=== PATIENT | female | born 1930 | race Caucasian/White ===

== ENCOUNTER → 2017-01-12 | Outpatient (CLI) | payer OTHER ==
[~2017-01-12] MED LIST: ACET-1311 PO; AMLO-110 PO; AMLO5TAB2 PO; ASPCH81X PO; CHOL1000 PO; CYAN10005 PO; FOLI1TAB7 PO; LEVO25TA PO; LORA-741 PO; MECL-91 PO; METO1TAB31 PO; MULT-188 PO; OMEP20CA9 PO; ROSU5TAB PO
[2017-01-12 11:50] LABS: HEMATOCRIT 40.5 % (37-47); MEAN CELL VOLUME 93.3 fL (80-100); MEAN CORPUSCULAR HEMOGLOBIN 30.9 pg (25-34); MEAN CORPUSCULAR HGB CONC 33.1 g/dl (32-36); MEAN PLATELET VOLUME 9.3 fL (7.4-10.4); PLATELET COUNT 179 K/uL (130-400); RED BLOOD COUNT 4.34 M/uL (4.2-5.4)
[2017-01-12 12:00] LABS: ALT/SGPT 23 U/L (12-78); AST/SGOT 25 U/L (15-37); BLOOD UREA NITROGEN 15 mg/dl (7-18); BUN/CREATININE RATIO 13.3 (10-20); CALCIUM 9.1 mg/dl (8.5-10.1); CARBON DIOXIDE 28 mmol/L (21-32); CHLORIDE 107 mmol/L (98-107); CHOLESTEROL 201 mg/dl (0-200); GLUCOSE 96 mg/dl (70-99); MAGNESIUM 2.1 mg/dl (1.8-2.4); POTASSIUM 4.2 mmol/L (3.5-5.1); SODIUM 142 mmol/L (136-145); TRIGLYCERIDES 120 mg/dl (0-150); VERY LOW DENSITY LIPOPROT CALC 24 mg/dl
[2017-01-12 12:06] LABS: ALB/GLOB RATIO 1.1 (0.9-2); ALKALINE PHOSPHATASE 71 U/L (45-117); CHOLESTEROL/HDL RATIO 3.7; HDL CHOLESTEROL 55 mg/dl; LDL CHOLESTEROL CALCULATED 122 mg/dl
[2017-01-12 12:38] LABS: ESTIMATED AVERAGE GLUCOSE 134 mg/dl; HA1C FLAG Normal (Normal)
[2017-01-12 13:26] LABS: BASO ABS # 0.05 K/uL (0-0.2); BASOPHIL % 0.9 %; COMPLETE YES; EOSINOPHIL % 1.7 %; LARGE GRANULAR LYMPHOCYTE % 30.4 %; LYMPHOCYTE % 35.7 %; NEUTROPHILS % 23.5 %
--- NOTE | 2017-01-23 08:31 | CODING QUERY MEDICAL NECESSITY ---
CQSUPPORTING DIAGNOSIS NEEDED A supporting diagnosis is required for the test/procedure performed on this patient in order for us to be reimbursed by the patient's insurance. Please provide a supporting diagnosis for the following test/procedure listed below next to the test name along with your signature. *If there is no additional diagnosis for this patient that would support the following test/procedure please document that below next to the test/procedure. Test(s)/Procedure(s) that require a supporting diagnosis: DOS 01/12/17 GLYCATED HEMOGLOBIN TEST Provider Signature: Date: Thank you [facility] Once completed, please kindly fax back to [phone] For questions please call [phone]
== END | disposition home or self-care (01) ==
LOC: C.LABPBG 08:57
PROVIDERS: ATTEND Family Medicine
DX: I12.9 Hypertensive chronic kidney disease with stage 1 through stage 4 chronic kidney disease, or unspecified chronic kidney disease (principal); N18.3 Chronic kidney disease, stage 3 (moderate); E78.5 Hyperlipidemia, unspecified; R53.83 Other fatigue; R73.01 Impaired fasting glucose

== ENCOUNTER 2017-02-28 22:25 | Observation (INO) | payer OTHER ==
[~2017-02-28] VITALS: Ht 152.4 cm; Wt 57.4 kg
[~2017-02-28 22:25] MED LIST changes: -ACET-1311 PO; -CHOL1000 PO; -MECL-91 PO
[2017-02-28 23:30] LABS: HEMATOCRIT 37.8 % (37-47); MEAN CELL VOLUME 91.5 fL (80-100); MEAN CORPUSCULAR HGB CONC 34.9 g/dl (32-36); MEAN PLATELET VOLUME 9.4 fL (7.4-10.4); PLATELET COUNT 164 K/uL (130-400); RED BLOOD COUNT 4.13 M/uL (4.2-5.4); WHITE BLOOD COUNT 5.12 K/uL (4.8-10.8)
[2017-02-28 23:45] LABS: BUN/CREATININE RATIO 12.2 (10-20); CALCIUM 9.2 mg/dl (8.5-10.1); CREATININE 1.3 mg/dl (0.60-1.20); POTASSIUM 3.7 mmol/L (3.5-5.1)
--- NOTE | 2017-02-28 23:45 | EMERGENCY ROOM VISIT NOTE ---
History Report prepared by Himanshu: Evan Chisholm Under the Supervision of: Dr. Nisa Everett D.O. First contact with patient: 22:49 Chief Complaint: DIZZY Stated Complaint: DIZZY/NAUSEA Nursing Triage Summary: pt arrives via ALS from home per ALS pt has been dizzy, lightheaded and felt like she was going to pass out off and on today she reports no factors have made it worse or better, it's intermittent History of Present Illness The patient is an 87 year old female who presents to the Emergency Room with complaints of worsening intermittent dizziness for the past couple of days. The patient's family states that the patient is intermittently dizzy more frequently , and they occur when she is lying in bed, sitting, and while walking. The patient states that during dinner she had an episode of dizziness, and she passed out and put her head down. The patient additionally is complaining of nausea. The patient denies any room spinning or ringing in her ears, and she denies any abdominal pain. The patient states that she has leg swelling and weakness throughout the day, and she has been having balance problems. She additionally has been having trouble remembering things. The patient states that she has not recent medication changes, and she states that nothing makes that dizziness better or worse. She states that she has not been eating as well for the past month, though she has not lost any weight. The patient has a history of a pituitary tumor, stroke, and a blood clot in her lung 3-4 years ago during which she had a syncopal episode. She is not currently on blood thinner. The patient additionally states that she only has one kidney and is stage 3 kidney disease. Source of History: patient Onset: past couple of days Position: other (global) Quality: other (dizziness) Timing: intermittent, worsening Associated Symptoms: + nausea, No abdominal pain Note: Associated symptoms: leg swelling Review of Systems See HPI for pertinent positives & negatives. A total of 10 systems reviewed and were otherwise negative. 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 (5) Diverticular disease of colon (6) Dyslipidemia (7) GERD (gastroesophageal reflux disease) (8) History abnormal MRI brain (9) History of DVT (deep vein thrombosis) (10) History of peptic ulcer disease (11) History of pulmonary embolism (12) Hypertension (13) LBBB (left bundle branch block) (14) Migraine headache (15) Myalgia (16) Osteoporosis Surgical Problems: (1) Status post cataract extraction (2) Status post nephrectomy Family History Coronary artery disease FATHER Crohn's disease MOTHER Diabetes mellitus BROTHER Social History Smoking Status: Never Smoker Marital Status: Housing Status: lives with family Occupation Status: retired Current/Historical Medications Scheduled Amlodipine (Norvasc), 5 MG PO QAM Amlodipine Besylate (Norvasc), 2.5 MG PO HS Aspirin (Aspirin Chewable), 81 MG PO QAM Cholecalciferol (Vitamin D3), 1 TAB PO DAILY Cyanocobalamin (Vitamin B-12), 1,000 MCG PO QAM Folic Acid (Folvite), 1 MG PO AFTERNOON Metoprolol Succinate (Toprol Xl), 1 TAB PO BID Multiple Vitamins W/ Minerals (Ocuvite), 1 TAB PO QAM Omeprazole (Prilosec), 20 MG PO QAM Rosuvastatin Calcium (Crestor), 5 MG PO QPM Scheduled PRN Acetaminophen (Tylenol), 650 MG PO Q4H PRN for Pain Lorazepam (Ativan), 0.5 MG PO DAILY PRN for Anxiety Allergies Coded Allergies: Alendronate (Verified Allergy, Unknown, Nausea/Heart Burn, 03/01/17) [facility] record. Risedronate (Verified Allergy, Unknown, Nausea/Vomiting, 03/01/17) [facility] record. Simvastatin (Verified Allergy, Unknown, Muscle Pain, 03/01/17) [facility] record. Physical Exam Vital Signs Date Time Temp Pulse Resp B/P (MAP) Pulse Ox O2 Delivery O2 Flow Rate FiO2 03/01/17 00:51 72 16 143/67 94 Room Air 03/01/17 00:20 76 20 154/73 96 Room Air 02/28/17 22:38 82 16 146/72 98 Room Air 84 161/72 91 159/80 02/28/17 22:34 82 02/28/17 22:29 36.4 81 16 175/86 94 Room Air Physical Exam HEENT: Head - normocephalic and atraumatic Pupils are equal, round, and reactive to light. Extraocular eye muscles are intact, and sclera are anicteric. Nose - moist nasal mucosa without discharge. Mouth - moist buccal mucosa. Oropharynx is nonerythematous and there is no tonsillar exudate or edema noted. Neck: Supple; no JVD, nuchal rigidity, cervical lymphadenopathy, or auscultated bruits. Heart: Regular rate and rhythm. There is a normal S1 and S2 with no murmurs, clicks, or gallops appreciated. Lungs: Clear to auscultation bilaterally with no wheezes, rales, or rhonchi. Abdomen: Slight tenderness in the left lower quadrant. Soft, nondistended, with good bowel sounds. There are no palpable pulsatile masses or hepatosplenomegaly. There is no guarding, rigidity, or rebound noted. Extremities: No evidence of cyanosis, clubbing, or edema. There are easily palpable peripheral pulses. Skin: warm and dry with good turgor and no rashes. Neuro: nonfocal Medical Decision & Procedures ER Provider Diagnostic Interpretation: Radiology results as stated below per my review and the radiologist's interpretation: CT HEAD: Comparison 03/26/2014 No evidence of acute infarct, hemorrhage, mass or edema. Chronic small vessel ischemic diseases and senescent changes. Remote lacunar infarcts within the right basal ganaglia. Minimal mucosal thickening in the paranasal sinuses. No acute osseous abnormality. Radiologist: Tommie Fay MD US VENOUS BILATERAL LOWER EXTREMITIES: No evidence of deep vein thrombosis. 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 Radiologist: Tommie Fay MD Laboratory Results Test 02/28/17 22:35 03/01/17 00:15 RDW Standard Deviation 44.2 fL (36.4-46.3) RDW Coefficient of Variation 13.2 % (11.5-14.5) White Blood Count 5.12 K/uL (4.8-10.8) Red Blood Count 4.13 M/uL (4.2-5.4) Hemoglobin 13.2 g/dL (12.0-16.0) Hematocrit 37.8 % (37-47) Mean Corpuscular Volume 91.5 fL (80-100) Mean Corpuscular Hemoglobin 32.0 pg (25-34) Mean Corpuscular Hemoglobin Concent 34.9 g/dl (32-36) Platelet Count 164 K/uL (130-400) Mean Platelet Volume 9.4 fL (7.4-10.4) Neutrophils % (Manual) 32.7 % Lymphocytes % (Manual) 39.8 % Variant Lymphocytes % (manual) 23.0 % Monocytes % (Manual) 2.7 % Eosinophils % (Manual) 0.9 % Basophils % (Manual) 0.9 % Neutrophils # (Manual) 1.67 K/uL (1.4-6.5) Total Absolute Neutrophils 1.67 K/uL (1.4-6.5) Lymphocytes # (Manual) 2.04 K/uL (1.2-3.4) Absolute Variant Lymphocytes 1.18 K/uL Total Absolute Lymphocytes 3.22 K/uL (1.2-3.4) Monocytes # (Manual) 0.14 K/uL (0.11-0.59) Eosinophils # (Manual) 0.05 K/uL (0-0.5) Basophils # (Manual) 0.05 K/uL (0-0.2) Toxic Vacuolation 1+ Est Creatinine Clear Calc Drug Dose 25.6 ml/min Total Bilirubin 0.4 mg/dl (0.2-1) Aspartate Amino Transf (AST/SGOT) 27 U/L (15-37) Alanine Aminotransferase (ALT/SGPT) 21 U/L (12-78) Alkaline Phosphatase 75 U/L (45-117) Troponin I 0.034 ng/ml (0-0.045) Total Protein 7.6 gm/dl (6.4-8.2) Albumin 3.9 gm/dl (3.4-5.0) Globulin 3.7 gm/dl (2.5-4.0) Albumin/Globulin Ratio 1.1 (0.9-2) Thyroid Stimulating Hormone (TSH) 4.380 uIu/ml (0.300-4.500) Lyme Disease IgG Antibody NEG (NEG) Lyme Disease IgM Antibody NEG (NEG) Urine Color YELLOW Urine Appearance CLEAR (CLEAR) Urine pH 6.5 (4.5-7.5) Urine Specific [place] 1.010 (1.000-1.030) Urine Protein NEG (NEG) Urine Glucose (UA) NEG (NEG) Urine Ketones NEG (NEG) Urine Occult Blood NEG (NEG) Urine Nitrite NEG (NEG) Urine Bilirubin NEG (NEG) Urine Urobilinogen NEG (NEG) Urine Leukocyte Esterase NEG (NEG) Laboratory results per my review. Medications Administered Medications (Trade) Dose Ordered Sig/Ariane Route Start Time Stop Time Status Last Admin Dose Admin Sodium Chloride 500 ml @ 999 mls/hr Q31M STAT IV 03/01/17 00:24 03/01/17 00:54 DC 03/01/17 00:51 999 MLS/HR Procedure Sodium Chloride IV ECG Indication: other (dizziness) Rate (beats per minute): 82 Rhythm: normal sinus Findings: LBBB, no acute ischemic change, no ectopy Comparison ECG Date: 03/17/15 Change: LBBB is new ED Course 2251: The patient was evaluated by the medical student. 2310: Past medical records reviewed. The patient was evaluated in room B9. A complete history and physical exam was performed. Laboratory studies were drawn as above. A twelve-lead EKG was obtained as described above 2338: Orthostatic vitals were done, and her blood pressure remained elevated, and her heart rate raised by ten points. The patient went for CT scan of the brain as described above. 0024: Sodium Chloride 500 ml @ 999 mls/hr IV. 0059: I reevaluated the patient, and she states that she had an echo done three weeks ago, and it was normal. She additionally states that when in CT she could not lie flat, and she couldn't put her head back because she was dizzy. 0131: Discussed the patient's case with Dr. Sandoval [facility]. The patient will be evaluated for further management. Medical Decision The patient is a 87 year old female who presents to the ED with dizziness. Differential diagnosis includes vertigo, labyrinthitis, a-fib, arrhythmia, stroke, PE Lab results show: UA is negative, no leukocytosis, stable H&H, BUN of 16, creatinine of 1.3, glucose of 151, normal TSH and LFTs, and troponin of 0.034 This is an 87 showed atrial patient with increasing symptoms of dizziness. The patient seems to have had a syncopal event without any warning signs well at home tonight. She describes recently undergoing echocardiogram which was described as normal. The patient has a new left bundle-branch block noted on EKG. She denies any chest pain or shortness of breath at this time. I am concerned about this patient's episode of syncope at the dinner table tonight. This seems consistent with a drop attack. I felt the patient would require cardiac monitoring and further evaluation of syncope/dizziness. Medication Reconcilliation Current Medication List: was personally reviewed by me Blood Pressure Screening Patient's blood pressure: Elevated blood pressure Monitored by the hospitalist Consults Time Called: 58 Consulting Physician: JOHNY Xiong Returned Call: [phone] Discussed the patient's case with JOHNY Xiong. The patient will be evaluated for further management. Impression Primary Impression: Syncope Additional Impression: Dizziness Scribe Attestation The scribe's documentation has been prepared under my direction and personally reviewed by me in its entirety. I confirm that the note above accurately reflects all work, treatment, procedures, and medical decision making performed by me. Departure Information Dispostion Being Evaluated By Hospitalist Referrals Karyn Puente DO (PCP) Patient Instructions My [facility] Problem Qualifiers Primary Impression: Syncope Syncope type: unspecified Qualified Codes: R55 - Syncope and collapse
[2017-02-28 23:56] LABS: ALB/GLOB RATIO 1.1 (0.9-2); THYROID STIMULATING HORMONE 4.38 uIu/ml (0.300-4.500)
[2017-03-01] VITALS (7 sets, daily range): BP systolic 145–182; BP diastolic 73–92; PULSE 63–85; TEMP 36.6–36.9; O2SAT 94–98; Ht 152.4 cm; Wt 57.4 kg
[2017-03-01] MEDS ORDERED: CHOL1000 PO (00:15)
[2017-03-01] MEDS ORDERED: ACET-1311 PO (00:15)
[2017-03-01] MEDS ORDERED: SODIUM CHLORIDE 0.9% 500ML 500 ML IV STA (00:24)
[2017-03-01 00:30] LABS: URINE APPEARANCE CLEAR (CLEAR); URINE BILIRUBIN NEG (NEG); URINE COLOR YELLOW; URINE NITRITE NEG (NEG); URINE PH 6.5 (4.5-7.5); UROBILINOGEN NEG (NEG)
[2017-03-01 00:37] LABS: MANUAL MICROSCOPIC REQUIRED? NO; REVIEW REQ? NO
[2017-03-01 01:05] LABS: BASO ABS # 0.05 K/uL (0-0.2); BASOPHIL % 0.9 %; COMPLETE YES; EOSINOPHIL % 0.9 %; LYMPH ABS # 2.04 K/uL (1.2-3.4); LYMPHOCYTE % 39.8 %; NEUTROPHILS % 32.7 %; VACUOLIZATION 1+; VARIANT LYM ABS # 1.18 K/uL
[2017-03-01] MEDS ORDERED: ACETAMINOPHEN 325 MG TAB PO PRN ×2 (02:15)
[2017-03-01] MEDS ORDERED: LORAZEPAM 0.5 MG TAB PO PRN (02:15)
[2017-03-01] MEDS ORDERED: MAGNESIUM HYDROXIDE SUSP 30 ML UDC PO PRN (02:15)
[2017-03-01] MEDS ORDERED: ALUMINUM/MAGNESIUM/SIMETH (MAALOX MAX) 30 ML UDC PO PRN (02:15)
[2017-03-01] MEDS ORDERED: POLYETHYLENE (MIRALAX) 17 GM PACK PO PRN (02:15)
[2017-03-01] MEDS ORDERED: ONDANSETRON INJ 2 MG/ML 2 ML VIAL IV PRN (02:15)
--- NOTE | 2017-03-01 02:27 | History and Physical ---
History & Physical Date & Time of Service: Mar 01, 2017 at 02:17 Chief Complaint: Dizzy/Nausea Primary Care Physician: Karyn Puente, History of Present Illness Source: patient Is a pleasant 87 year old female with past medical history of hypertension, hyperlipidemia, hypothyroidism, benign pituitary tumor, CKD stage III, osteoporosis, GERD, prior history of heterozygous MTHFHR mutation suspect PE, who presents with intermittent dizziness. Patient states that this is going on for the past 4 days, she feels like today the worst ever been which made her decide to come to the emergency department. The patient says that for the past 4 days she's had up to 10 episodes of short- lived dizziness. The episodes occur intermittently and last about 5-6 seconds. They're not associated with any specific movements of the head. They can occur either at rest or with exertion. She does not especially describe the dizziness as "spinning around the room", more that she feels a sense of weakness and lightheadedness. She denies any associated symptoms with this dizziness including chest and palpitations, shortness of breath, flashes floaters light. Today was the worst it's been, she states she had more than 10 episodes of this. In addition to this at dinnertime her son noted that she had a syncopal event in which she lost consciousness. This only lasted for a few moments. She was not disoriented when she regained consciousness. She said overall her appetite is slightly reduced and she had a little bit of nausea. But otherwise she is not had any diarrhea, or urinary symptoms. She denies fevers, chills, or sweats. She really states that she's had a few weeks of intermittent palpitations. Her PCP had recently ordered an echocardiogram which was overall unremarkable. In addition she also ordered a Holter monitor, but the patient never had that done. In the ED CT of her brain was grossly unremarkable. On EKG there is noted to be a new left bundle branch block, though the patient never had any chest pain. In addition she had a slightly elevated creatinine 1.3 in comparison to her baseline 1.1. The decision was made to admit the patient for evaluation of presyncope. Past Medical/Surgical History Medical Problems: (1) Carotid artery disease Status: Chronic (2) Cerebrovascular disease Permanent Comment: s/p stroke Status: Chronic (3) CKD (chronic kidney disease) stage 3, GFR 30-59 ml/min Status: Chronic (4) Compound heterozygous MTHFR mutation [id number] Status: Chronic (5) Diverticular disease of colon Status: Chronic (6) Dyslipidemia Status: Chronic (7) GERD (gastroesophageal reflux disease) Status: Chronic (8) History abnormal MRI brain Permanent Comment: 6 mm lesion pituitary fossa MRI 03/23/14 [facility] Status: Chronic (9) History of DVT (deep vein thrombosis) Permanent Comment: many yrs ago, associated with leg injury Status: Chronic (10) History of peptic ulcer disease Status: Chronic (11) History of pulmonary embolism Permanent Comment: 2013 Status: Chronic (12) Hypertension Status: Chronic (13) Migraine headache Status: Chronic (14) Myalgia Status: Chronic (15) Osteoporosis Status: Chronic Surgical Problems: (1) Status post cataract extraction Status: Chronic (2) Status post nephrectomy Permanent Comment: for chronic pyelonephritis Status: Chronic Family History Coronary artery disease FATHER Crohn's disease MOTHER Diabetes mellitus BROTHER Social History Smoking Status: Never Smoker Smokeless Tobacco Use: No Alcohol Use: none Drug Use: none Marital Status: Housing status: lives with family Occupational Status: retired Immunizations History of Influenza Vaccine: Unknown History of Tetanus Vaccine?: Unknown History of Pneumococcal: Unknown History of Hepatitis B Vaccine: Unknown Multi-Drug Resistant Organisms History of MDRO: No Allergies Coded Allergies: Alendronate (Verified Allergy, Unknown, Nausea/Heart Burn, 03/01/17) [facility] record. Risedronate (Verified Allergy, Unknown, Nausea/Vomiting, 03/01/17) [facility] record. Simvastatin (Verified Allergy, Unknown, Muscle Pain, 03/01/17) [facility] record. Home Medications Scheduled Amlodipine (Norvasc), 5 MG PO QAM Amlodipine Besylate (Norvasc), 2.5 MG PO HS Aspirin (Aspirin Chewable), 81 MG PO QAM Cholecalciferol (Vitamin D3), 1 TAB PO DAILY Cyanocobalamin (Vitamin B-12), 1,000 MCG PO QAM Folic Acid (Folvite), 1 MG PO AFTERNOON Metoprolol Succinate (Toprol Xl), 1 TAB PO BID Multiple Vitamins W/ Minerals (Ocuvite), 1 TAB PO QAM Omeprazole (Prilosec), 20 MG PO QAM Rosuvastatin Calcium (Crestor), 5 MG PO QPM Scheduled PRN Acetaminophen (Tylenol), 650 MG PO Q4H PRN for Pain Lorazepam (Ativan), 0.5 MG PO DAILY PRN for Anxiety Review of Systems A 10 point review of systems was negative unless stated above. Physical Exam Vital Signs Date Time Temp Pulse Resp B/P (MAP) Pulse Ox O2 Delivery O2 Flow Rate FiO2 03/01/17 00:51 72 16 143/67 94 Room Air 03/01/17 00:20 76 20 154/73 96 Room Air 02/28/17 22:38 82 16 146/72 98 Room Air 84 161/72 91 159/80 02/28/17 22:34 82 02/28/17 22:29 36.4 81 16 175/86 94 Room Air General Appearance: WD/WN, no apparent distress Head: normocephalic, atraumatic Eyes: normal inspection, EOMI, + pertinent finding (no nystagmus) ENT: hearing grossly normal, pharynx normal Neck: supple, no adenopathy, no JVD Respiratory/Chest: lungs clear, no respiratory distress Cardiovascular: regular rate, rhythm, no gallop, no murmur Abdomen/GI: normal bowel sounds, non tender, soft Back: no CVA tenderness, no muscle spasm Extremities/Musculoskelatal: no calf tenderness, no pedal edema 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, no motor/sensory deficits, alert, + pertinent finding (Kleber-Hallpike maneuver is negative) Skin: normal color, warm/dry, no rash, + pertinent finding (no targetoid lesions) Lymphatic: no adenopathy Diagnostics Laboratory Results Results Past 24 Hours Test 02/28/17 22:35 03/01/17 00:15 Range/Units White Blood Count 5.12 4.8-10.8 K/uL Red Blood Count 4.13 4.2-5.4 M/uL Hemoglobin 13.2 12.0-16.0 g/dL Hematocrit 37.8 37-47 % Mean Corpuscular Volume 91.5 80-100 fL Mean Corpuscular Hemoglobin 32.0 25-34 pg Mean Corpuscular Hemoglobin Concent 34.9 32-36 g/dl Platelet Count 164 130-400 K/uL Mean Platelet Volume 9.4 7.4-10.4 fL RDW Standard Deviation 44.2 36.4-46.3 fL RDW Coefficient of Variation 13.2 11.5-14.5 % Neutrophils % (Manual) 32.7 % Lymphocytes % (Manual) 39.8 % Variant Lymphocytes % (manual) 23.0 % Monocytes % (Manual) 2.7 % Eosinophils % (Manual) 0.9 % Basophils % (Manual) 0.9 % Neutrophils # (Manual) 1.67 1.4-6.5 K/uL Total Absolute Neutrophils 1.67 1.4-6.5 K/uL Lymphocytes # (Manual) 2.04 1.2-3.4 K/uL Absolute Variant Lymphocytes 1.18 K/uL Total Absolute Lymphocytes 3.22 1.2-3.4 K/uL Monocytes # (Manual) 0.14 0.11-0.59 K/uL Eosinophils # (Manual) 0.05 0-0.5 K/uL Basophils # (Manual) 0.05 0-0.2 K/uL Toxic Vacuolation 1+ Sodium Level 141 136-145 mmol/L Potassium Level 3.7 3.5-5.1 mmol/L Chloride Level 108 98-107 mmol/L Carbon Dioxide Level 26 21-32 mmol/L Anion Gap 7.0 3-11 mmol/L Blood Urea Nitrogen 16 7-18 mg/dl Creatinine 1.30 0.60-1.20 mg/dl Est Creatinine Clear Calc Drug Dose 25.6 ml/min Estimated GFR () 43.0 Estimated GFR (Non- 37.1 BUN/Creatinine Ratio 12.2 10-20 Random Glucose 151 70-99 mg/dl Calcium Level 9.2 8.5-10.1 mg/dl Total Bilirubin 0.4 0.2-1 mg/dl Aspartate Amino Transf (AST/SGOT) 27 15-37 U/L Alanine Aminotransferase (ALT/SGPT) 21 12-78 U/L Alkaline Phosphatase 75 45-117 U/L Troponin I 0.034 0-0.045 ng/ml Total Protein 7.6 6.4-8.2 gm/dl Albumin 3.9 3.4-5.0 gm/dl Globulin 3.7 2.5-4.0 gm/dl Albumin/Globulin Ratio 1.1 0.9-2 Thyroid Stimulating Hormone (TSH) 4.380 0.300-4.500 uIu/ml Urine Color YELLOW Urine Appearance CLEAR CLEAR Urine pH 6.5 4.5-7.5 Urine Specific Ruth 1.010 1.000-1.030 Urine Protein NEG NEG Urine Glucose (UA) NEG NEG Urine Ketones NEG NEG Urine Occult Blood NEG NEG Urine Nitrite NEG NEG Urine Bilirubin NEG NEG Urine Urobilinogen NEG NEG Urine Leukocyte Esterase NEG NEG Impression Assessment and Plan 87 year old with 3 days of intermittent lightheadedness with single episode of syncope today. Based on history she seems to be experiencing more lightheadedness rather than classic dizziness/vertiginous symptoms. On arrival she has new LBBB though no chest pain. Troponin is normal. 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 Intermittent lightheadedness with single episode of syncope - Telemetry with cardiac monitoring - Had echocardiogram done (in the EMR) 1 month ago EF 55-60%; sclerotic changes of AV and MV; trace MR and TR - Apparently had Holter monitor order that was never done; will monitor in telemetry during stay - Can add Meclizine PRN for persistent dizziness - PT to evaluate for BPPV New LBBB - No chest pain, negative troponin - Monitor in telemetry - Serial cardiac enzyme monitoring - Lives in the [facility], consider Lyme Lyme screen pending Acute Kidney Injury on CKD 3 - Baseline Cr. 1.1; arrives with Cr. 1.3 - Hydrate overnight with NSS + 20 KCl @ 125 ml/hr - Repeat BMP in AM History of MTFHR mutation reported PE - Notes PE being suspected on V/Q scan in 2013; however, follow-up CT PE was negative however, so would question whether she is actually had a PE in the past - Will order CT for PE now - Continue daily folic acid History of Pituitary Gland Tumor - CT brain in ED negative - If work-up above is unremarkable, primary team can consider follow-up studies Hypertension - Continue Amlodipine - Continue Metoprolol Hyperlipidemia - Continue Rosuvastatin GERD - Continue Omeprazole DVT Prophylaxis - SCD Knee, BALBIR Hose - Heparin 5000 U s.c. TID Code Status - Level I Full Code Disposition - Telemetry - OT and PT evaluations Attending Addendum: I have physically seen and examined this patient, have directed the resident's medical activities, and agree with the H&P as noted above with the following exceptions as noted. The patient is awake, alert and oriented 3, well-developed and well-nourished , normocephalic and atraumatic, lying in bed and in no acute distress. HEENT--PERRL, EOMI, mucous membranes and oropharynx dry. Neck--supple, no JVD or bruits, thyroid normal, trachea midline, no adenopathy. Heart--normal S1 and S2, no extra beats, no murmurs, rubs or gallops. Lungs--clear bilaterally with good air movement, no respiratory distress, no accessory muscle use. Abdomen--normal bowel sounds and soft, nontender and nondistended, no hernias or masses, no organomegaly. Extremities--no cyanosis, clubbing or edema. There are good distal pulses b/l. Dermatologic--normal skin turgor, normal color, warm and dry, no abnormal lymph nodes, no rash. Neurologic--cranial nerves II through XII grossly intact. Rheumatologic--normal range of motion, nontender, muscles and joints. Psychiatric--normal affect. Assessment and Plan: Syncope/new left bundle branch block-- The patient will be admitted to telemetry for serial cardiac enzymes and cardiac rhythm monitoring. Echo performed one month ago showed EF 55-60%, no significant abnormalities. Unlikely pulmonary embolism. May be secondary to dehydration. MTHFR/report of coronary embolism-- Patient had a VQ scan performed in 2013 which revealed high probability for PE. Patient had a VQ scan performed in 2014 which revealed high probability for PE, with a subsequent CTA of chest negative for PE. Suspect that initial diagnosis of PE in 2013 was not correct. Hypertension/mild renal insufficiency-- Gentle hydration with normal saline with 20 mEq of potassium chloride at 100 ML' s per hour. Continue amlodipine and metoprolol with hold parameters. GERD-- His omeprazole to pantoprazole. Hyperlipidemia Continue Crestor. Next Neck pain/chronic left arm weakness-- Order CT of neck without contrast. Pituitary gland tumor history-- MRI unavailable when patient was admitted. Would consider ordering MRI of brain with attention to pituitary during the daytime hours. Level of Care Telemetry Advanced Directives Existing Advance Directive: Yes Existing Living Will: Yes Existing Power of Forestry Extension Specialist: Yes Resuscitation Status FULL RESUSCITATION VTE Prophylaxis VTE Risk Assessment Done? Y/N: Yes Risk Level: Moderate Given or contraindicated: Unfractionated heparin SQ
[2017-03-01] MEDS ORDERED: OPTIRAY 320 IV PRN (02:30)
[2017-03-01 02:49] LABS: LYME DISEASE AB IGG NEG (NEG); LYME DISEASE AB IGM NEG (NEG)
[2017-03-01] MEDS ORDERED: IV FLUIDS COMPLETED PRN (03:00)
[2017-03-01] MEDS: NSS + 20MEQ KCL 1000ML 1,000 ML IV SCH ×2 (03:22→10:38)
[2017-03-01] MEDS ORDERED: INFLUENZA ADMINISTRATION CHARGE ONE (04:15)
[2017-03-01] MEDS ORDERED: INFLUENZA VACCINE HIGH DOSE 65+ 0.5 ML SYR IM. ONE (04:15)
--- NOTE | 2017-03-01 06:51 | DIAGNOSTIC IMAGING REPORT ---
CT OF THE HEAD WITHOUT CONTRAST CLINICAL HISTORY: Dizzy. Nausea. History of pituitary tumor. COMPARISON STUDY: MRI of the brain March 23, [address] March 26, 2014. CT DOSE: 537.48 mGy.cm TECHNIQUE: Helical axial images of the head were obtained without IV contrast. Automated exposure control was utilized for the study. A dose lowering technique was utilized adhering to the principles of ALARA. FINDINGS: No acute intracranial hemorrhage, midline shift or mass effect is present. The ventricular system is stable. Basilar cisterns are patent. There are no extra-axial collections. White matter hypodensity suggests small vessel disease. Old lacunar infarcts within the right caudate nucleus are noted. There are no findings to suggest acute dural sinus thrombosis or acute territorial infarct. Pituitary gland is suboptimally assessed by CT. Visualized portions of the sinuses and mastoid air cells are clear. There are no calvarial abnormalities. IMPRESSION: No acute intracranial findings. Electronically signed by: Garett Jaeger M.D. 03/01/2017 6:50 AM Dictated Date/Time: 03/01/2017 6:47 AM
--- NOTE | 2017-03-01 06:53 | DIAGNOSTIC IMAGING REPORT ---
BILATERAL LOWER EXTREMITY VENOUS DOPPLER CLINICAL HISTORY: Dizzy. Nausea. COMPARISON STUDY: Bilateral lower extremity venous Doppler March 18, 2015. TECHNIQUE: Sonography of the deep venous system of the bilateral lower extremities was performed. Compression and augmentation were evaluated. FINDINGS: The bilateral common femoral, superficial femoral and popliteal veins were compressible. Augmentation was normal. Flow was shown within the deep calf vessels. A right popliteal fossa fluid collection measures 4.1 x 0.9 x 1.8 cm and a left popliteal fossa fluid collection measures 3.5 x 0.9 x 1.7 cm. These collections are mildly complex. There is no color flow. IMPRESSION: 1. No evidence of deep venous thrombus within the bilateral lower extremities. 2. Small bilateral popliteal cysts. Electronically signed by: Garett Jaeger M.D. 03/01/2017 6:52 AM Dictated Date/Time: 03/01/2017 6:50 AM
--- NOTE | 2017-03-01 07:04 | DIAGNOSTIC IMAGING REPORT ---
CT OF THE CERVICAL SPINE WITHOUT CONTRAST CLINICAL HISTORY: Neck pain. Left hand weakness. COMPARISON STUDY: No previous studies for comparison. TECHNIQUE: Helical axial images of the cervical spine were obtained without IV contrast. Sagittal and coronal reconstructions were viewed. A dose lowering technique was utilized adhering to the principles of ALARA. FINDINGS: There is reversal of the normal cervical lordosis with 1 mm of anterolisthesis of C3 on C4 and 4 mm of anterolisthesis of C4 on C5, likely due to facet arthrosis. There is marked disc space narrowing and osteophytosis at C5-C6 and C6-C7. There is severe multilevel facet arthrosis. Central canal and neural foramen are suboptimally assessed by CT. There is no prevertebral edema. Chest CT will be reported separately. There is no acute cervical spine fracture. IMPRESSION: 1. No acute cervical spine fracture or subluxation. 2. Severe degenerative disc disease at C5-C6 and C6-C7 with severe multilevel facet arthrosis. 3. 4 mm anterolisthesis of C4 on C5, likely due to facet arthrosis. 4. Suboptimal evaluation of the central canal and neural foramen given CT technique. Electronically signed by: Garett Jaeger M.D. 03/01/2017 7:02 AM Dictated Date/Time: 03/01/2017 6:58 AM
--- NOTE | 2017-03-01 07:31 | DIAGNOSTIC IMAGING REPORT ---
CT ANGIOGRAM OF THE CHEST CLINICAL HISTORY: Syncope. COMPARISON STUDY: Chest CT dated 03/19/2015. TECHNIQUE: Following the IV administration of 92 cc of Optiray 320, CT angiogram of the chest was performed from the upper abdomen to the thoracic inlet utilizing the pulmonary embolus protocol. Images are reviewed in the axial, sagittal, and coronal planes. 3-D MIPS images are created and assessed. IV contrast was administered without complication. A dose lowering technique was utilized adhering to the principles of ALARA. The Examination is degraded by motion artifact. FINDINGS: Thyroid: Imaged portions of the thyroid gland are normal in size and attenuation. A 1.3 cm low-attenuation nodule is noted in the right lobe. Thoracic aorta: There is atherosclerotic calcification of the thoracic aorta, which is normal in caliber and demonstrates standard 3-vessel arch anatomy. No dissection is seen. Pulmonary vasculature: The pulmonary trunk is normal in caliber. There are no filling defects identified in main, lobar, or segmental pulmonary branches to suggest pulmonary embolus. Heart: The heart is enlarged and there is trace pericardial effusion. The coronary arteries are densely calcified. Lungs and pleural spaces: Evaluation of the lung parenchyma is degraded by motion artifact. There is no airspace consolidation or pleural effusion. Dependent atelectasis is observed. The trachea and central airways are clear. Mediastinum: There is no mediastinal lymphadenopathy. Alysia: Clear. Axillae: There is no axillary lymphadenopathy. Upper abdomen: There is a small hiatal hernia. Partially visualized upper abdominal viscera is otherwise within normal limits. Skeletal structures: The skeletal structures are osteopenic. Arthritic change is present in the shoulders and thoracic spine. A large posterior disc osteophyte complex is seen at T12-L1. No lytic or blastic bony lesions are seen. IMPRESSION: 1. There is no evidence of pulmonary embolus in the main, lobar, or segmental pulmonary arteries. 2. There is no airspace consolidation or pleural effusion. 3. Cardiomegaly. Electronically signed by: Terence Coello M.D. 03/01/2017 7:30 AM Dictated Date/Time: 03/01/2017 7:25 AM
--- NOTE | 2017-03-01 07:35 | Family Medicine Progress Note ---
Progress Note Date of Service Mar 01, 2017. Subjective Pt evaluation today including: conversation w/ patient, physical exam, chart review, lab review The patient was seen and examined at bedside. No acute overnight events. Telemetry monitoring showed sinus rhythm in the 70s. Patient is resting comfortably in bed. Eating and urinating well. Still having dizzy symptoms. Plan of care was described to the patient and all questions were answered. Constitutional: No fever, No chills, No sweats Respiratory: No cough, No sputum, No wheezing, No shortness of breath Cardiovascular: No chest pain Abdomen: No pain, No nausea, No vomiting, No diarrhea Musculoskeletal: No joint pain Female : No dysuria Objective Physical Exam General Appearance: WD/WN, no apparent distress Eyes: PERRL ENT: normal ENT inspection Neck: no JVD Respiratory/Chest: chest non-tender, lungs clear, normal breath sounds, no respiratory distress, no accessory muscle use Cardiovascular: regular rate, rhythm, no edema, no gallop, no JVD, no murmur Abdomen: normal bowel sounds, non tender, soft, no organomegaly Extremities: normal range of motion, non-tender, normal inspection, no pedal edema, no calf tenderness Neurologic/Psychiatric: reconditioner II-XII nml as tested, alert, normal mood/affect, oriented x 3, + pertinent finding (Kleber hallpike positive, pt states that her symptoms come on any time she turns her head up and to the right. ) Skin: no rash Assessment and Plan 87F year old with 3 days of intermittent lightheadedness with single episode of syncope today. Based on history she seems to be experiencing more lightheadedness rather than classic dizziness/vertiginous symptoms.On arrival she has new LBBB though no chest pain. Troponins negative x 2. 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 Intermittent lightheadedness with single episode of syncope - Telemetry with cardiac monitoring - Had echocardiogram done (in the EMR) 1 month ago EF 55-60%; sclerotic changes of AV and MV; trace MR and TR - Apparently had Holter monitor order that was never done; will monitor in telemetry during stay - Can add Meclizine PRN for persistent dizziness - PT to evaluate for BPPV - May be all 2/2 dehydration. New LBBB - No chest pain, negative troponin - Monitor in telemetry - Serial cardiac enzyme monitoring - Lives in the [facility], consider Lyme Lyme screen negative. Acute Kidney Injury on CKD 3 - Baseline Cr. 1.1; arrives with Cr. 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 - Continue daily folic acid History of Pituitary Gland Tumor - CT brain in ED negative - MRA pituitary, will happen after 10pm today. Hypertension - Continue Amlodipine - Continue Metoprolol Hyperlipidemia - Continue Rosuvastatin GERD - Continue Omeprazole DVT Prophylaxis - SCD Knee, BALBIR Hose - Heparin 5000 U s.c. TID Disposition - Telemetry - OT and PT evaluations FULL CODE Resident Physician Supervision Note: I interviewed and examined the patient. Discussed with Dr. Montano and agree with findings and plan as documented in the note. Any exceptions or clarifications are listed here: None Documented By: Tommie Garcia notes dizziness is like a lightheadedness like she might pass out. repeated questioning denies spinning or unsteady, but does have a little bit of a difficult time defining dizziness without directed questioning. notes she doesn 't drink enough - uses a lot of time and energy taking care of her vitals ntoed nad breathing unlabored no pallor or icterus dizziness - seems mostly a dehdyration (?and effect from BP med) lightheadedness -IVF, follow -MRI to f/u on pituitary as unlikely cause -home after MRI Resident Involvement: Resident Care Provided Care Provided: Adult Hospital Medicine
[2017-03-01 08:21] LABS: MEAN CELL VOLUME 91.6 fL (80-100); MEAN CORPUSCULAR HEMOGLOBIN 31.7 pg (25-34); MEAN CORPUSCULAR HGB CONC 34.6 g/dl (32-36); MEAN PLATELET VOLUME 9.3 fL (7.4-10.4); PLATELET COUNT 143 K/uL (130-400); RED BLOOD COUNT 3.82 M/uL (4.2-5.4); WHITE BLOOD COUNT 4.92 K/uL (4.8-10.8)
[2017-03-01] MEDS: PANTOprazole SOD 40 MG TAB PO SCH (08:21)
[2017-03-01] MEDS: ASPIRIN 81 MG CHEW PO SCH (08:21)
[2017-03-01] MEDS: CEROVITE ADV FORMULA TAB PO SCH (08:22)
[2017-03-01] MEDS: AMLODIPINE BESYLATE 5 MG TAB PO SCH (08:22)
[2017-03-01] MEDS: CYANOCOBALAMIN 500 MCG TAB (VIT B-12) PO SCH (08:22)
[2017-03-01] MEDS: METOPROLOL SUCC 25MG EXT REL TAB PO SCH ×2 (08:22→20:23)
[2017-03-01] MEDS: CHOLECALCIFEROL 1000 INTER.UNIT TAB PO SCH (08:22)
[2017-03-01 08:31] LABS: CKMB/CK RATIO 1.3 (0-3.0)
[2017-03-01 08:36] LABS: BUN/CREATININE RATIO 10.2 (10-20); CALCIUM 8.8 mg/dl (8.5-10.1); CREATININE 1.1 mg/dl (0.60-1.20)
[2017-03-01] MEDS: HEPARIN SOD 5000 UNIT/0.5 ML CARP SQ SCH ×2 (15:06→20:30)
[2017-03-01 16:35] LABS: CKMB/CK RATIO 1.1 (0-3.0)
[2017-03-01] MEDS ORDERED: ROSUVASTATIN CALCIUM 10 MG TAB PO SCH (21:00)
[2017-03-01] MEDS ORDERED: AMLODIPINE BESYLATE 5 MG TAB PO SCH (21:00)
[2017-03-02] MEDS ORDERED: GADAVIST IV PRN (02:00)
[2017-03-02 03:10] VITALS: BP 161/80; PULSE 61; TEMP 36.8; O2SAT 97
[2017-03-02] MEDS: HEPARIN SOD 5000 UNIT/0.5 ML CARP SQ SCH ×2 (05:56→13:46)
--- NOTE | 2017-03-02 07:32 | DIAGNOSTIC IMAGING REPORT ---
BRAIN COMBO FOR PITUITARY CLINICAL HISTORY: Dizziness. Pituitary gland tumor. COMPARISON STUDY: MRI of the brain March 20, [address] February 28, 2017. TECHNIQUE: Utilizing 1.5 Bhavana magnet, multiplanar, multi echo imaging of the brain was performed pre and postcontrast administration with thin cut imaging through the sellar region. Injection of 5.9 cc of Gadavist IV was uneventful. Dynamic enhancement was utilized. FINDINGS: There are no areas restricted diffusion. No acute intracranial hemorrhage, midline shift or mass effect is present. Ventricular system is stable. Basilar cisterns are patent. There are no extra-axial collections. Flow-voids for the major intracranial vessels are present. Extensive white matter T2 hyperintense foci suggest small vessel disease. Calvarial signal is normal. Note is made of a 7 x 7 x 5 mm T1 hyperintense nonenhancing lesion within the left posterior anterior aspect of the sella. This is similar to MRI of March 20, 2014. No additional intracranial masses are present. Orbits are unremarkable. Sinuses are clear. There is no fluid within the mastoid air cells. No cerebellopontine angle mass is identified. IMPRESSION: 1. No acute intracranial findings. 2. No change in a 7 mm T1 hyperintense left posterior sellar lesion since MRI of March 23, 2014. This is suggestive of a Rathke's cleft cyst. 3. No intracranial mass or pathologic enhancement. 4. Extensive small vessel disease Electronically signed by: Garett Jaeger M.D. 03/02/2017 7:31 AM Dictated Date/Time: 03/02/2017 7:21 AM
[2017-03-02] MEDS ORDERED: MECLIZINE HCL 25 MG TAB PO STA (07:38)
[2017-03-02] MEDS ORDERED: MECLIZINE HCL 25 MG TAB PO PRN (07:45)
[2017-03-02 08:21] VITALS: BP 143/75; PULSE 65; TEMP 36.6; O2SAT 95
[2017-03-02] MEDS: ASPIRIN 81 MG CHEW PO SCH (09:28)
[2017-03-02] MEDS: METOPROLOL SUCC 25MG EXT REL TAB PO SCH (09:29)
[2017-03-02] MEDS: CEROVITE ADV FORMULA TAB PO SCH (09:29)
[2017-03-02] MEDS: AMLODIPINE BESYLATE 5 MG TAB PO SCH (09:29)
[2017-03-02] MEDS: PANTOprazole SOD 40 MG TAB PO SCH (09:29)
[2017-03-02] MEDS: CHOLECALCIFEROL 1000 INTER.UNIT TAB PO SCH (09:30)
[2017-03-02] MEDS: CYANOCOBALAMIN 500 MCG TAB (VIT B-12) PO SCH (09:30)
[2017-03-02] MEDS ORDERED: MECL-91 PO (10:50)
--- NOTE | 2017-03-02 11:00 | Discharge Instructions ---
Discharge Instructions Date of Service Mar 02, 2017. Admission Reason for Admission: Dizziness, Lbbb Discharge Discharge Diagnosis / Problem: Dizziness secondary to BPPV, dehydration or viral labrynthitis Discharge Goals Goal(s): Decrease discomfort, Improve function, Increase independence, Improve disease control, Improve nutritional status, Learn about illness Activity Recommendations Activity Limitations: per Instructions/Follow-up section . Instructions / Follow-Up Instructions / Follow-Up You are being discharged on a new medication called Meclizine. Take one pill whenever you are dizzy up to three pills per day. Information about Meclizine will be attached to these discharge instructions. The MRI of your head and CT Scan of your chest showed no new changes. We believe the three etiologies for your dizziness include dehydration, benign position paroxysmal vertigo (BPPV) and residual symptoms of viral labyrinthitis. You are being discharged with information about Meclizine, BPPV, Vertigo and staying hydrated. Please remember to stay well hydrated with water. Please follow up with your PCP within 7 days. Current Hospital Diet Patient's current hospital diet: Regular Diet Discharge Diet Recommended Diet: AHA Diet (Heart Healthy) Pending Studies Studies pending at discharge: no Laboratory Results Hemoglobin A1c Test 01/12/17 09:01 Range/Units Estimated Average Glucose 134 mg/dl Hemoglobin A1c 6.3 H 4.5-5.6 % Lipid Panel Test 01/12/17 09:01 Range/Units Triglycerides Level 120 0-150 mg/dl Cholesterol Level 201 H 0-200 mg/dl HDL Cholesterol 55 mg/dl Cholesterol/HDL Ratio 3.7 LDL Cholesterol, Calculated 122 mg/dl Medical Emergencies . Who to Call and When: Medical Emergencies: If at any time you feel your situation is an emergency, please call 911 immediately. . Non-Emergent Contact Non-Emergency issues call your: Primary Care Provider . . "Provider Documentation" section prepared by Kenny Montano. . VTE Core Measure Inpt VTE Proph given/why not?: Unfractionated heparin SQ Resident Involvement: Resident Care Provided Care Provided: Adult Hospital Medicine
--- NOTE | 2017-03-02 11:11 | Discharge Summary ---
Discharge Summary Date of Service Mar 02, 2017. (Kenny Montano M.D.) Discharge Summary Admission Date: Mar 01, 2017 at 02:05 Discharge Date: Mar 02, 2017 Discharge Disposition: Home Principal Diagnosis: Dizziness multifactorial 2/2 BPPV, Viral Labrynthitis and Dehydration Immunizations: Have You Had Influenza Vaccine: Unknown History of Tetanus Vaccine?: Unknown History of Pneumococcal: Unknown History of Hepatitis B Vaccine: Unknown Procedures: BRAIN COMBO FOR PITUITARY CLINICAL HISTORY: Dizziness. Pituitary gland tumor. COMPARISON STUDY: MRI of the brain March 20, [address] February 28, 2017. TECHNIQUE: Utilizing 1.5 Bhavana magnet, multiplanar, multi echo imaging of the brain was performed pre and postcontrast administration with thin cut imaging through the sellar region. Injection of 5.9 cc of Gadavist IV was uneventful. Dynamic enhancement was utilized. FINDINGS: There are no areas restricted diffusion. No acute intracranial hemorrhage, midline shift or mass effect is present. Ventricular system is stable. Basilar cisterns are patent. There are no extra-axial collections. Flow-voids for the major intracranial vessels are present. Extensive white matter T2 hyperintense foci suggest small vessel disease. Calvarial signal is normal. Note is made of a 7 x 7 x 5 mm T1 hyperintense nonenhancing lesion within the left posterior anterior aspect of the sella. This is similar to MRI of March 20, 2014. No additional intracranial masses are present. Orbits are unremarkable. Sinuses are clear. There is no fluid within the mastoid air cells. No cerebellopontine angle mass is identified. IMPRESSION: 1. No acute intracranial findings. 2. No change in a 7 mm T1 hyperintense left posterior sellar lesion since MRI of March 23, 2014. This is suggestive of a Rathke's cleft cyst. 3. No intracranial mass or pathologic enhancement. 4. Extensive small vessel disease [~ rep ct add3]] CT OF THE CERVICAL SPINE WITHOUT CONTRAST CLINICAL HISTORY: Neck pain. Left hand weakness. COMPARISON STUDY: No previous studies for comparison. TECHNIQUE: Helical axial images of the cervical spine were obtained without IV contrast. Sagittal and coronal reconstructions were viewed. A dose lowering technique was utilized adhering to the principles of ALARA. FINDINGS: There is reversal of the normal cervical lordosis with 1 mm of anterolisthesis of C3 on C4 and 4 mm of anterolisthesis of C4 on C5, likely due to facet arthrosis. There is marked disc space narrowing and osteophytosis at C5-C6 and C6-C7. There is severe multilevel facet arthrosis. Central canal and neural foramen are suboptimally assessed by CT. There is no prevertebral edema. Chest CT will be reported separately. There is no acute cervical spine fracture. IMPRESSION: 1. No acute cervical spine fracture or subluxation. 2. Severe degenerative disc disease at C5-C6 and C6-C7 with severe multilevel facet arthrosis. 3. 4 mm anterolisthesis of C4 on C5, likely due to facet arthrosis. 4. Suboptimal evaluation of the central canal and neural foramen given CT technique. CT ANGIOGRAM OF THE CHEST CLINICAL HISTORY: Syncope. COMPARISON STUDY: Chest CT dated 03/19/2015. TECHNIQUE: Following the IV administration of 92 cc of Optiray 320, CT angiogram of the chest was performed from the upper abdomen to the thoracic inlet utilizing the pulmonary embolus protocol. Images are reviewed in the axial, sagittal, and coronal planes. 3-D MIPS images are created and assessed. IV contrast was administered without complication. A dose lowering technique was utilized adhering to the principles of ALARA. The Examination is degraded by motion artifact. FINDINGS: Thyroid: Imaged portions of the thyroid gland are normal in size and attenuation. A 1.3 cm low-attenuation nodule is noted in the right lobe. Thoracic aorta: There is atherosclerotic calcification of the thoracic aorta, which is normal in caliber and demonstrates standard 3-vessel arch anatomy. No dissection is seen. Pulmonary vasculature: The pulmonary trunk is normal in caliber. There are no filling defects identified in main, lobar, or segmental pulmonary branches to suggest pulmonary embolus. Heart: The heart is enlarged and there is trace pericardial effusion. The coronary arteries are densely calcified. Lungs and pleural spaces: Evaluation of the lung parenchyma is degraded by motion artifact. There is no airspace consolidation or pleural effusion. Dependent atelectasis is observed. The trachea and central airways are clear. Mediastinum: There is no mediastinal lymphadenopathy. Alysia: Clear. Axillae: There is no axillary lymphadenopathy. Upper abdomen: There is a small hiatal hernia. Partially visualized upper abdominal viscera is otherwise within normal limits. Skeletal structures: The skeletal structures are osteopenic. Arthritic change is present in the shoulders and thoracic spine. A large posterior disc osteophyte complex is seen at T12-L1. No lytic or blastic bony lesions are seen. IMPRESSION: 1. There is no evidence of pulmonary embolus in the main, lobar, or segmental pulmonary arteries. 2. There is no airspace consolidation or pleural effusion. 3. Cardiomegaly. BILATERAL LOWER EXTREMITY VENOUS DOPPLER CLINICAL HISTORY: Dizzy. Nausea. COMPARISON STUDY: Bilateral lower extremity venous Doppler March 18, 2015. TECHNIQUE: Sonography of the deep venous system of the bilateral lower extremities was performed. Compression and augmentation were evaluated. FINDINGS: The bilateral common femoral, superficial femoral and popliteal veins were compressible. Augmentation was normal. Flow was shown within the deep calf vessels. A right popliteal fossa fluid collection measures 4.1 x 0.9 x 1.8 cm and a left popliteal fossa fluid collection measures 3.5 x 0.9 x 1.7 cm. These collections are mildly complex. There is no color flow. IMPRESSION: 1. No evidence of deep venous thrombus within the bilateral lower extremities. 2. Small bilateral popliteal cysts. CT OF THE HEAD WITHOUT CONTRAST CLINICAL HISTORY: Dizzy. Nausea. History of pituitary tumor. COMPARISON STUDY: MRI of the brain March 23, [address] March 26, 2014. CT DOSE: 537.48 mGy.cm TECHNIQUE: Helical axial images of the head were obtained without IV contrast. Automated exposure control was utilized for the study. A dose lowering technique was utilized adhering to the principles of ALARA. FINDINGS: No acute intracranial hemorrhage, midline shift or mass effect is present. The ventricular system is stable. Basilar cisterns are patent. There are no extra-axial collections. White matter hypodensity suggests small vessel disease. Old lacunar infarcts within the right caudate nucleus are noted. There are no findings to suggest acute dural sinus thrombosis or acute territorial infarct. Pituitary gland is suboptimally assessed by CT. Visualized portions of the sinuses and mastoid air cells are clear. There are no calvarial abnormalities. IMPRESSION: No acute intracranial findings. (Kenny Montano M.D.) Medication Reconciliation New Medications: Meclizine HCl (Meclizine 25) 25 Mg Tab 25 MG PO TID PRN for Dizziness or Vertigo for 30 Days, #60 TAB Continued Medications: Acetaminophen (Tylenol) 325 Mg Tab 650 MG PO Q4H PRN for Pain, TAB Amlodipine (Norvasc) 5 Mg Tab 5 MG PO QAM Amlodipine Besylate (Norvasc) 5 Mg Tab 2.5 MG PO HS, TAB Aspirin (Aspirin Chewable) 81 Mg Chew 81 MG PO QAM, TAB Cholecalciferol (Vitamin D3) 1,000 Unit Tab 1 TAB PO DAILY for 90 Days, #90 TAB 3 Refills Cyanocobalamin (Vitamin B-12) 1,000 Mcg Tab 1000 MCG PO QAM, TAB Folic Acid (Folvite) 1 Mg Tab 1 MG PO AFTERNOON, TAB Lorazepam (Ativan) 0.5 Mg Tab 0.5 MG PO DAILY PRN for Anxiety, TAB Metoprolol Succinate (Toprol Xl) 25 Mg Tab 1 TAB PO BID Multiple Vitamins W/ Minerals (Ocuvite) 1 Tab Tab 1 TAB PO QAM Omeprazole (Prilosec) 20 Mg Cap 20 MG PO QAM, CAP Rosuvastatin Calcium (Crestor) 5 Mg Tab 5 MG PO QPM, TAB Discharge Exam The patient was seen and examined at bedside. No acute overnight events. Telemetry monitoring showed sinus rhythm in the 70s. Patient is resting comfortably in bed. Eating and urinating well. Pt reports that her dizziness has improved - it only occurs when she lies down and turns her head to the right. Plan of care was described to the patient and all questions were answered. Constitutional: No fever, No chills, No sweats Respiratory: No cough, No sputum, No wheezing, No shortness of breath Cardiovascular: No chest pain Abdomen: No pain, No nausea, No vomiting, No diarrhea Musculoskeletal: No joint pain Female : No dysuria Physical Exam General Appearance: WD/WN, no apparent distress Eyes: PERRL ENT: normal ENT inspection Neck: no JVD Respiratory/Chest: chest non-tender, lungs clear, normal breath sounds, no respiratory distress, no accessory muscle use Cardiovascular: regular rate, rhythm, no edema, no gallop, no JVD, no murmur Abdomen: normal bowel sounds, non tender, soft, no organomegaly Extremities: normal range of motion, non-tender, normal inspection, no pedal edema, no calf tenderness Neurologic/Psychiatric: superintendent pier II-XII nml as tested, alert, normal mood/affect, oriented x 3, + pertinent finding ([place] hallpike positive, pt states that her symptoms come on any time she turns her head up and to the right. ) Skin: no rash (Kenny Montano M.D.) Hospital Course 87F year old with 3 days of intermittent lightheadedness with single episode of syncope today. Based on history she seems to be experiencing more lightheadedness rather than classic dizziness/vertiginous symptoms.On arrival she has new LBBB though no chest pain. Troponins negative x 2. 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 Intermittent lightheadedness with single episode of syncope - Telemetry with cardiac monitoring - Had echocardiogram done (in the EMR) 1 month ago EF 55-60%; sclerotic changes of AV and MV; trace MR and TR - Apparently had Holter monitor order that was never done; will monitor in telemetry during stay - Can add Meclizine PRN for persistent dizziness - PT to evaluate for BPPV - May be all 2/2 dehydration. New LBBB - No chest pain, negative troponin - Monitor in telemetry - Serial cardiac enzyme monitoring - [facility] [place], consider Lyme Lyme screen negative. Acute Kidney Injury on CKD 3 - Baseline Cr. 1.1; arrives with Cr. 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 - Continue daily folic acid History of Pituitary Gland Tumor - CT brain in ED negative - MRA pituitary, will happen after 10pm today. Hypertension - Continue Amlodipine - Continue Metoprolol Hyperlipidemia - Continue Rosuvastatin GERD - Continue Omeprazole DVT Prophylaxis - SCD Knee, BALBIR Hose - Heparin 5000 U s.c. TID Disposition - Telemetry - OT and PT evaluations FULL CODE Total Time Spent: Greater than 30 minutes (65 min) This includes examination of the patient, discharge planning, medication reconciliation, and communication with other providers. (Kenny Montano M.D.) Resident Physician Supervision Note: I interviewed and examined the patient. Discussed with Dr. Montano and agree with findings and plan as documented in the note. Any exceptions or clarifications are listed here: None Documented By: Tommie Garcia feeling better - still a little dizzy off and on but better. notes that she clearly feels well enough to go home and do OK. vitals noted nad breathing unlabored no pallor or icterus dizziness -probably multifactorial but biggest component appears to have been a lightheadedness likely mostly from dehydration (poor drinking, labs suggested dry) -- and improved w IVF. follow - may need to down titrate BP meds if continues -otherwise as above -stable for home -PCP next week (Tommie Garcia, D.O.) Discharge Instructions Please refer to the electronic Patient Visit Report (Discharge Instructions) for additional information. (Kenny Montano M.D.) Additional Copies To Karyn Puente DO Resident Involvement: Resident Care Provided Care Provided: [facility] (Kenny Montano M.D.)
[2017-03-02 12:46] VITALS: BP 144/57; PULSE 69; TEMP 36.6; O2SAT 96
[2017-03-02 13:56] VITALS: BP 144/57; PULSE 69; TEMP 36.6; O2SAT 96
== END 2017-03-02 15:50 | disposition home or self-care (01) ==
LOC: EDBD 22:25 → C.EDB 22:26 → C.2E 03-01 02:05 → ENRESERV 03-01 02:17
PROVIDERS: ADMIT Student in an Organized Health Care Education/Training Program; ATTEND Family Medicine
DX: R42 Dizziness and giddiness (principal); R55 Syncope and collapse; E86.0 Dehydration; E72.12 Methylenetetrahydrofolate reductase deficiency; I44.7 Left bundle-branch block, unspecified; N17.9 Acute kidney failure, unspecified; I12.9 Hypertensive chronic kidney disease with stage 1 through stage 4 chronic kidney disease, or unspecified chronic kidney disease; N18.3 Chronic kidney disease, stage 3 (moderate); M81.0 Age-related osteoporosis without current pathological fracture; E78.5 Hyperlipidemia, unspecified; K21.9 Gastro-esophageal reflux disease without esophagitis; Z79.82 Long term (current) use of aspirin; Z86.718 Personal history of other venous thrombosis and embolism; Z90.5 Acquired absence of kidney; Z82.49 Family history of ischemic heart disease and other diseases of the circulatory system; Z83.3 Family history of diabetes mellitus

== ENCOUNTER → 2017-09-20 | Outpatient (CLI) | payer OTHER ==
[~2017-09-20] MED LIST changes: +ACET-1311 PO; +CHOL1000 PO; -FOLI1TAB7 PO; +FOLI1TAB8 PO; -LEVO25TA PO; +MECL-91 PO; +METO-478 PO; -METO1TAB31 PO
[2017-09-20 13:04] LABS: HEMATOCRIT 38.6 % (37-47); HEMOGLOBIN 13.4 g/dL (12.0-16.0); MEAN CELL VOLUME 92.1 fL (80-100); MEAN CORPUSCULAR HGB CONC 34.7 g/dl (32-36); MEAN PLATELET VOLUME 9.1 fL (7.4-10.4); PLATELET COUNT 150 K/uL (130-400); RED CELL DISTRIBUTION WIDTH SD 43.6 fL (36.4-46.3); WHITE BLOOD COUNT 4.24 K/uL (4.8-10.8)
[2017-09-20 14:31] LABS: ALBUMIN 3.8 gm/dl (3.4-5.0); ALT/SGPT 23 U/L (12-78); AST/SGOT 24 U/L (15-37); BLOOD UREA NITROGEN 15 mg/dl (7-18); CALCIUM 8.8 mg/dl (8.5-10.1); CARBON DIOXIDE 28 mmol/L (21-32); CHOLESTEROL 176 mg/dl (0-200); GLUCOSE 97 mg/dl (70-99); POTASSIUM 3.6 mmol/L (3.5-5.1); SODIUM 140 mmol/L (136-145)
[2017-09-20 14:41] LABS: ALKALINE PHOSPHATASE 77 U/L (45-117); LDL CHOLESTEROL CALCULATED 98 mg/dl; TOTAL PROTEIN 7.6 gm/dl (6.4-8.2)
== END | disposition home or self-care (01) ==
LOC: C.LABPBG 10:20
PROVIDERS: ATTEND Family Medicine
DX: N18.3 Chronic kidney disease, stage 3 (moderate) (principal); E78.5 Hyperlipidemia, unspecified; E03.9 Hypothyroidism, unspecified; R73.01 Impaired fasting glucose; F41.8 Other specified anxiety disorders; I10 Essential (primary) hypertension

== ENCOUNTER → 2017-10-09 | Outpatient (CLI) | payer OTHER ==
--- NOTE | 2017-10-09 16:35 | DIAGNOSTIC IMAGING REPORT ---
LUMBAR SPINE W/O CONTRAST CLINICAL HISTORY: 87 years-old Female presenting with M54.42 Low back pain with left-sided sciatica, symptoms for 3 weeks, gait disturbance, no trauma. TECHNIQUE: Multisequence, multiplanar MR imaging of the lumbar spine was performed without the use of intravenous contrast. IV contrast: None. COMPARISON: None. FINDINGS: Localizer images: Unremarkable. Exaggerated lumbar lordosis. 4 mm of grade 1 retrolisthesis of L1 on L2. Trace retrolisthesis of L2 on L3. 6 mm of grade 1 anterolisthesis of L4 on L5. It is difficult to exclude the presence of pars defects. Vertebral bodies maintain normal height, alignment, and bone marrow signal intensity with the exception of minimal endplate edema at L1-2 and L3-4, likely degenerative in etiology. Multilevel intervertebral disc height loss with disc bulges. Multilevel degenerative changes further detailed below: T12-L1: Disc bulge with focal disc protrusion which effaces the left paracentral ventral thecal sac. This abuts the transiting left L1 nerve root. No significant neural foraminal narrowing. L1-2: Disc bulge effaces the ventral thecal sac. Moderate bilateral neural foraminal narrowing. L2-3: Disc bulge and facet arthropathy result in circumferential narrowing of the thecal sac though CSF signal intensity is maintained. Moderate right and mild left neural foraminal narrowing. Mass effect on the bilateral exiting L2 nerve roots. L3-4: Disc bulge and facet arthropathy result in mild circumferential effacement of the thecal sac with preservation of CSF signal. There is abutment of the transiting L4 nerve roots. Moderate to severe right and moderate left neural foraminal narrowing. Abutment of the bilateral exiting L3 nerve roots. L4-5: Disc bulge and facet arthropathy results in mild ventral effacement of the thecal sac. Mass effect on the exiting right L4 nerve root and abutment of the exiting left L4 nerve root. Moderate bilateral neural foraminal narrowing largely due to anterolisthesis of L4 on L5. L5-S1: Minimal disc bulge and facet arthropathy. No significant spinal canal narrowing. Mild bilateral neural foraminal narrowing. Spinal cord ends in good position at the superior endplate of L1. Cauda equina normal in morphology. Paraspinal musculature within normal limits. Remaining soft tissues demonstrates diverticulosis with wall thickening of the sigmoid colon. IMPRESSION: 1. Multilevel degenerative changes with multilevel spinal canal and neural foraminal narrowing detailed above. This is most severe at L3-4. 2. Diverticulosis with suggestion of chronic diverticular disease. Electronically signed by: Pranav Beckman M.D. 10/09/2017 4:33 PM Dictated Date/Time: 10/09/2017 4:24 PM
== END | disposition home or self-care (01) ==
LOC: C.MRI 14:56
PROVIDERS: ATTEND Family Medicine
DX: M54.42 Lumbago with sciatica, left side (principal); K57.90 Diverticulosis of intestine, part unspecified, without perforation or abscess without bleeding